=== PATIENT | male | born 1960 | race Caucasian/White ===

== ENCOUNTER 2017-11-05 02:28 | Emergency (ER) | payer SELFPAY ==
[~2017-11-05] VITALS: Ht 162.6 cm; Wt 55.0 kg
[~2017-11-05 02:28] MED LIST: IBUP800T25 PO
[2017-11-05 02:41] VITALS: Ht 162.6 cm; Wt 55.0 kg
[2017-11-05] MEDS ORDERED: SOD CHLORIDE 0.9% 1,000 ML IV STA (02:46)
[2017-11-05] MEDS ORDERED: ONDANSETRON 4 MG INJ IV STA (02:46)
[2017-11-05] MEDS ORDERED: morphine 2 MG INJ IV STA (02:46)
[2017-11-05] MEDS ORDERED: SOD CHLORIDE 0.9% 1,000 ML IV ONE (03:30)
--- NOTE | 2017-11-05 04:13 | RADRPT ---
PROCEDURE: CHEST - 1 VIEW CLINICAL INDICATION: 56-year-old male with chest/abdominal pain. TECHNIQUE: A single frontal AP portable view of the chest was performed. The images were reviewed on a PACS workstation. COMPARISON: CR CHEST 03/24/2015 FINDINGS: The cardiomediastinal silhouette has a normal appearance. There is a shallow inspiration. There is m ild right and minimal left basilar subsegmental atelectasis. There is no evidence for an infiltrate. There is no evidence for congestive heart failure. There is no evidence for pneumothorax. The osse ous structures are intact. IMPRESSION: Shallow inspiration with mild right and minimal left basilar subsegmental atelectasis. .Merrick Zuñiga MD, MD Date Time Electronically viewed and signed by .Merrick Zuñiga MD, on 11/05/2017 04:12 .M/
[2017-11-05 04:19] LABS: ALANINE AMINOTRANSFERASE 36 IU/L (13-69); ALBUMIN 4.3 g/dl (3.3-4.9); ALBUMIN/GLOBULIN RATIO 1.48; ALKALINE PHOSPHATASE 79 IU/L (42-121); ANION GAP 12 (8-16); ASPARTATE AMINO TRANSFERASE 25 IU/L (15-46); BILIRUBIN,INDIRECT 0.6 mg/dl (0-1.1); BILIRUBIN,TOTAL 0.6 mg/dl (0.2-1.3); BLOOD UREA NITROGEN 18 mg/dl (7-20); CALCIUM 8.7 mg/dl (8.4-10.2); CARBON DIOXIDE 33 mmol/L (21-31); CHLORIDE 102 mmol/L (97-110); CREATININE 0.86 mg/dl (0.61-1.24); GLUCOSE 109 mg/dl (70-220); SODIUM 143 mmol/L (135-144); TOTAL PROTEIN 7.2 g/dl (6.1-8.1)
[2017-11-05 04:30] LABS: BASOPHILS % 0.2 % (0.0-2.0); EOSINOPHILS # 0.1 10^3/ul (0.0-0.5); EOSINOPHILS % 0.6 % (0.0-7.0); HEMATOCRIT 40.4 % (42.0-52.0); HEMOGLOBIN 14.1 g/dl (14.0-18.0); LYMPHOCYTES % 9.2 % (15.0-51.0); MEAN CORPUSCULAR HEMOGLOBIN 31.9 pg (29.0-33.0); MEAN CORPUSCULAR HGB CONC 34.9 g/dl (32.0-37.0); MEAN CORPUSCULAR VOLUME 91.4 fl (82.0-101.0); MEAN PLATELET VOLUME 11.5 fl (7.4-10.4); MONOCYTE # 0.6 10^3/ul (0.3-0.9); MONOCYTES % 5.8 % (0.0-11.0); NEUTROPHILS % 83.9 % (39.0-77.0); PLATELET COUNT 191 10^3/UL (140-415); RED BLOOD COUNT 4.42 10^6/ul (4.70-6.10); RED CELL DISTRIBUTION WIDTH 11.8 % (11.5-14.5); WHITE BLOOD COUNT 10.7 10^3/ul (4.8-10.8)
[2017-11-05 04:45] VITALS: BP 112/70; PULSE 70; RESP 16; TEMP 97.7
[2017-11-05 05:12] LABS: TROPONIN-I < 0.012 ng/ml (0.00-0.12)
[2017-11-05] MEDS ORDERED: KETOROLAC 30 MG INJ IV ONE (05:27)
--- NOTE | 2017-11-05 05:39 | ERD ---
ER Documentation Chief Complaint Chief Complaint syncopal episode after vomiting; n/v all day, pale, dizzy on scene, -trauma HPI This 56-year-old male presents with an episode of syncope this evening. It occurred immediately after he stood up where he felt lightheaded and went down near family who caught him and he did not fall or injure anything. He woke up this morning with nausea and began vomiting. He has had no diarrhea or constipation. He had some nausea and vomiting last night. Does not believe he ate anything bad. Has a mild headache currently ROS All systems reviewed and are negative except as per history of present illness. Medications Home Meds Active Scripts Ibuprofen* (Motrin*) 800 Mg Tab, 800 MG PO Q6H Y for PAIN AND OR ELEVATED TEMP, #30 TAB Prov:YOVANI LIN. [employer]IST 11/16/15 Allergies Allergies: Coded Allergies: No Known Allergy (Unverified , 11/16/15) PMhx/Soc History of Surgery: Yes (Hernia, appendectomy, rt knee, testical) Anesthesia Reaction: No Hx Neurological Disorder: No Hx Respiratory Disorders: No Hx Cardiac Disorders: Yes (Hypercholesteremia) Hx Psychiatric Problems: No Hx Miscellaneous Medical Probl: No Hx Alcohol Use: No Hx Substance Use: No Hx Tobacco Use: No Smoking Status: Never smoker Physical Exam Vitals Vital Signs Date Time Temp Pulse Resp B/P Pulse Ox O2 Delivery O2 Flow Rate FiO2 11/05/17 02:44 97.7 64 16 109/73 100 Room Air 11/05/17 02:41 97.7 58 16 109/73 100 Physical Exam Const: [] Head: Atraumatic Eyes: Normal Conjunctiva ENT: Normal External Ears, Nose and Mouth. Neck: Full range of motion..~ No meningismus. Resp: Clear to auscultation bilaterally Cardio: Regular rate and rhythm, no murmurs Abd: Soft, non tender, non distended. Normal bowel sounds Skin: No petechiae or rashes Back: No midline or flank tenderness Ext: No cyanosis, or edema Neur: Awake and alert Psych: Normal Mood and Affect Result Diagram: 11/05/17 0323 11/05/17 0323 Results 24 hrs Laboratory Tests Test 11/05/17 03:23 White Blood Count 10.710^3/ul Red Blood Count 4.4210^6/ul Hemoglobin 14.1g/dl Hematocrit 40.4% Mean Corpuscular Volume 91.4fl Mean Corpuscular Hemoglobin 31.9pg Mean Corpuscular Hemoglobin Concent 34.9g/dl Red Cell Distribution Width 11.8% Platelet Count 21674^3/UL Mean Platelet Volume 11.5fl Neutrophils % 83.9% Lymphocytes % 9.2% Monocytes % 5.8% Eosinophils % 0.6% Basophils % 0.2% Nucleated Red Blood Cells % 0.0/100WBC Neutrophils # 9.010^3/ul Lymphocytes # 1.010^3/ul Monocytes # 0.610^3/ul Eosinophils # 0.110^3/ul Basophils # 0.010^3/ul Nucleated Red Blood Cells # 0.010^3/ul Sodium Level 143mmol/L Potassium Level 4.0mmol/L Chloride Level 102mmol/L Carbon Dioxide Level 33mmol/L Anion Gap 12 Blood Urea Nitrogen 18mg/dl Creatinine 0.86mg/dl Glucose Level 109mg/dl Lactic Acid Level 1.3mmol/L Calcium Level 8.7mg/dl Total Bilirubin 0.6mg/dl Direct Bilirubin 0.00mg/dl Indirect Bilirubin 0.6mg/dl Aspartate Amino Transf (AST/SGOT) 25IU/L Alanine Aminotransferase (ALT/SGPT) 36IU/L Alkaline Phosphatase 79IU/L Troponin I < 0.012ng/ml Total Protein 7.2g/dl Albumin 4.3g/dl Globulin 2.90g/dl Albumin/Globulin Ratio 1.48 Lipase 45U/L Current Medications Medications (Trade) Dose Ordered Sig/Lance Route PRN Reason Start Time Stop Time Status Last Admin Dose Admin Sodium Chloride (NS) 1,000 ml @ 1,000 mls/hr Q1H STAT IV 11/05/17 02:46 11/05/17 03:45 DC 11/05/17 02:46 Morphine Sulfate (morphine) 2 mg ONCE STAT IV 11/05/17 02:46 11/05/17 02:47 DC Ondansetron HCl 4 mg 4 mg ONCE STAT IV 11/05/17 02:46 11/05/17 02:47 DC Sodium Chloride (NS) 1,000 ml @ 1,000 mls/hr Q1H ONCE IV 11/05/17 03:30 11/05/17 04:29 DC 11/05/17 04:27 Procedures/MDM Likely vasovagal syncope after nausea and vomiting for 1 day. No diarrhea yet. Normal abdominal laboratories and electrolytes. No signs of acute infection. Possible viral gastritis etiology. No signs of cardiac dysfunction. Patient is healthy and plays soccer daily and likely has healthy bradycardia. Is feeling better with no nausea after Zofran headache is improved with morphine IV. Was given a liter of IV fluids. Does have evidence of contraction alkalosis with an elevated bicarb on laboratory draw. We will discharge him with Zofran as well as naproxen. Primary care follow-up in 2-3 days. I have low suspicion for subarachnoid hemorrhage given the pattern of the headache which occurred only after the patient had a significant vomiting. No head injury. Believe the risks of a CT would outweigh the benefits currently. Primary care follow-up and strict return precautions. EKG interpretation, sinus bradycardia rate of 50, normal axis, normal intervals , no ST or T-wave changes concerning for acute ischemia. Sinus bradycardia otherwise normal EKG. trichologist interpretation: Stable sinus bradycardia without arrhythmia. Chest x-ray interpretation: Poor inspiration. I see no acute process however. I see no widened mediastinum, no infiltrate, pneumothorax, no fractures. Departure Diagnosis: Primary Impression: Syncope Additional Impressions: Vomiting Dehydration Condition: Stable SILVIO MARTIN DO Nov 05, 2017 05:37
[2017-11-05] MEDS ORDERED: ONDA4TAB11 PO (05:44)
[2017-11-05] MEDS ORDERED: NAPR-688 PO (05:44)
[2017-11-05 06:39] LABS: ADD UMIC YES; UR ASCORBIC ACID NEGATIVE (NEGATIVE); UR BILIRUBIN (Dip) NEGATIVE (NEGATIVE); UR BLOOD (Dip) NEGATIVE (NEGATIVE); UR CLARITY CLEAR (CLEAR); UR COLOR YELLOW (YELLOW); UR GLUCOSE (Dip) NEGATIVE (NEGATIVE); UR KETONES (Dip) NEGATIVE (NEGATIVE); UR LEUKOCYTE ESTERASE (Dip) NEGATIVE Leu/ul (NEGATIVE); UR MUCUS FEW /HPF (NONE SEEN); UR NITRITE (Dip) NEGATIVE (NEGATIVE); UR RBC 1 /HPF (0-5); UR SPECIFIC GRAVITY (Dip) 1.029 (1.003-1.030); UR TOTAL PROTEIN (Dip) 1+ mg/dl (NEGATIVE); UR UROBILINOGEN (Dip) 1+ mg/dL (NEGATIVE)
== END 2017-11-05 06:11 | disposition home or self-care (01) ==
LOC: E/R 02:28
DX: R55 Syncope and collapse (principal); E86.0 Dehydration
CPT/HCPCS: 36415; 71010; 80053; 81001; 83605; 83690; 84484; 85025; 93005; 96374; 99285; J1885; J7030